=== PATIENT | male | born 1960 | race Asian ===

== ENCOUNTER 2022-06-30 11:05 | Inpatient (IN) ==
[2022-06-30 16:26] LABS: ABS Eosinophils 0.1 10^3/ul (0-0.6); ABS Lymphocytes 1.8 10^3/ul (1.0-4.8); ABS Monocytes 0.5 10^3/ul (0-0.8); ABS Neutrophils 5.7 10^3/ul (1.5-7.7); Hematocrit 39 % (42-52); Hemoglobin 13.1 g/dL (14.0-18.0); Lymphocyte % 21.8 %; Mean Corpuscular HGB Conc 34 g/dL (31-36); Mean Corpuscular Hemoglobin 29 pg (27-31); Mean Corpuscular Volume 84 fL (80-94); Mean Platelet Volume 8.4 fL (7.4-10.4); Platelet Count 299 10^3/uL (150-450); Red Blood Count 4.61 10^6 /uL (4.18-5.48); Red Cell Distribution Width 14 % (10-15); White Blood Count 8.2 10^3/uL (3.5-10.8)
[2022-06-30 16:29] LABS: Urine Appearance Clear; Urine Bilirubin Negative (Negative); Urine Blood Negative (Negative); Urine Color Straw; Urine Glucose Negative (Negative); Urine Ketones Negative (Negative); Urine Nitrite Negative (Negative); Urine Protein Negative (Negative); Urine Specific Gravity 1.004 (1.002-1.030); Urine Urobilinogen Negative (Negative)
[2022-06-30 17:01] LABS: Albumin 4.9 g/dL (3.2-5.2); C Reactive Protein 2.07 mg/L (<8.01); Calcium 9.8 mg/dL (8.6-10.3); Creatinine, Serum 3.66 mg/dL (0.67-1.17); Globulin 2.4 g/dL (2-4); Total Bilirubin 0.6 mg/dL (0.2-1.0); Total Protein 7.3 g/dL (6.4-8.9); eGFR CKD-EPI 18.3 (>60)
[2022-06-30 17:03] LABS: Potassium 5.6 mmol/L (3.5-5.0)
[2022-06-30] MEDS ORDERED: Lactated Ringers 1000 ml BAG 1,000 ML IV ONE (17:38)
[2022-06-30] MEDS ORDERED: NS 0.9% 1000 ml BAG 1,000 ML IV ONE ×3 (20:40→21:31)
[2022-06-30 21:09] LABS: Urine Appearance Cloudy; Urine Bilirubin Negative (Negative); Urine Blood 3+ (Negative); Urine Color Yellow; Urine Glucose Negative (Negative); Urine Ketones Negative (Negative); Urine Nitrite Negative (Negative); Urine Protein Negative (Negative); Urine Specific Gravity 1.004 (1.002-1.030); Urine Urobilinogen Negative (Negative)
[2022-06-30 21:20] LABS: Urine Bacteria 1+ (Absent); Urine Red Blood Cell 3+(>10/hpf) (Absent); Urine White Blood Cell 3+(>20/hpf) (Absent)
[2022-06-30] MEDS ORDERED: cefTRIAXone 1 gm/50 mL D5W 1 GM/50 ML BAG IV ONE (21:32)
[2022-06-30 23:32] LABS: ABS Monocytes 0.3 10^3/ul (0-0.8); ABS Neutrophils 7.9 10^3/ul (1.5-7.7); Eosinophil % 0.3 %; Hematocrit 39 % (42-52); Hemoglobin 12.8 g/dL (14.0-18.0); Lymphocyte % 11.2 %; Mean Corpuscular HGB Conc 33 g/dL (31-36); Mean Corpuscular Hemoglobin 28 pg (27-31); Mean Corpuscular Volume 85 fL (80-94); Mean Platelet Volume 8.3 fL (7.4-10.4); Platelet Count 286 10^3/uL (150-450); Red Blood Count 4.64 10^6 /uL (4.18-5.48); Red Cell Distribution Width 14 % (10-15); White Blood Count 9.2 10^3/uL (3.5-10.8)
[2022-07-01 00:13] LABS: Albumin 4.5 g/dL (3.2-5.2); Albumin/Globulin Ratio 1.8 (1-3); Calcium 8.9 mg/dL (8.6-10.3); Creatinine, Serum 3.29 mg/dL (0.67-1.17); Globulin 2.5 g/dL (2-4); Total Bilirubin 0.5 mg/dL (0.2-1.0); eGFR CKD-EPI 20.8 (>60)
[2022-07-01 00:28] LABS: Potassium 6.1 mmol/L (3.5-5.0)
[2022-07-01] MEDS ORDERED: CALCIUM GLUCONATE 1GM/50ML NS 1 GM/50 ML BAG IV ONE (00:40)
[2022-07-01] MEDS ORDERED: Dextrose 50% Syringe 50 ml 25 GM/50 ML SYRINGE IV PUSH ONE (00:41)
[2022-07-01] MEDS ORDERED: Sodium Polystyrene ORAL.SUSP 15 GM/60 ML BTL PO ONE (00:59)
[2022-07-01 03:02] LABS: Urine Appearance Cloudy; Urine Bacteria Absent (Absent); Urine Bilirubin Negative (Negative); Urine Blood 3+ (Negative); Urine Glucose 1+(50 mg/dL) (Negative); Urine Ketones Trace (Negative); Urine Nitrite Negative (Negative); Urine Protein 3+(>=500 mg/dL) (Negative); Urine Red Blood Cell 3+(>10/hpf) (Absent); Urine Specific Gravity 1.005 (1.002-1.030); Urine Urobilinogen Negative (Negative); Urine White Blood Cell Absent (Absent)
[2022-07-01 03:03] LABS: Urine Color Red
[2022-07-01 03:19] LABS: Calcium 9.3 mg/dL (8.6-10.3); Creatinine, Serum 3.04 mg/dL (0.67-1.17); eGFR CKD-EPI 22.8 (>60)
[2022-07-01 03:23] LABS: Potassium 5.2 mmol/L (3.5-5.0)
[2022-07-01] MEDS ORDERED: Lactated Ringers 1000 ml BAG 1,000 ML IV SCH (04:00)
[2022-07-01 06:04] LABS: ABS Lymphocytes 1.4 10^3/ul (1.0-4.8); ABS Monocytes 0.5 10^3/ul (0-0.8); ABS Neutrophils 6.5 10^3/ul (1.5-7.7); Eosinophil % 0.2 %; Hematocrit 39 % (42-52); Hemoglobin 12.9 g/dL (14.0-18.0); Lymphocyte % 16.6 %; Mean Corpuscular HGB Conc 33 g/dL (31-36); Mean Corpuscular Hemoglobin 28 pg (27-31); Mean Corpuscular Volume 84 fL (80-94); Mean Platelet Volume 8.6 fL (7.4-10.4); Platelet Count 281 10^3/uL (150-450); Red Blood Count 4.61 10^6 /uL (4.18-5.48); Red Cell Distribution Width 14 % (10-15); White Blood Count 8.4 10^3/uL (3.5-10.8)
[2022-07-01 06:51] LABS: ALT 12 U/L (7-52); Albumin 4.5 g/dL (3.2-5.2); Albumin/Globulin Ratio 1.8 (1-3); Alkaline Phosphatase 51 U/L (35-149); Blood Urea Nitrogen 34 mg/dL (6-24); CO2 Carbon Dioxide 18 mmol/L (22-32); Calcium 9.3 mg/dL (8.6-10.3); Creatinine, Serum 3.19 mg/dL (0.67-1.17); Globulin 2.5 g/dL (2-4); Glucose 90 mg/dL (70-100); eGFR CKD-EPI 21.6 (>60)
[2022-07-01 06:56] LABS: Anion Gap 11 mmol/L (2-11); Chloride 117 mmol/L (101-111); Sodium 146 mmol/L (135-145)
[2022-07-01 08:31] LABS: Potassium Redraw 5.4 mmol/L (3.5-5.0)
[2022-07-01] MEDS: Lactated Ringers 1000 ml BAG 1,000 ML IV SCH ×3 (08:46→23:36)
[2022-07-01 16:03] LABS: Calcium 9.2 mg/dL (8.6-10.3); Creatinine, Serum 2.76 mg/dL (0.67-1.17); Magnesium 1.7 mg/dL (1.9-2.7); Phosphorus 4.7 mg/dL (2.5-5.0); Potassium 4.5 mmol/L (3.5-5.0); eGFR CKD-EPI 25.6 (>60)
[2022-07-01] MEDS ORDERED: Magnesium Sulfate 2 gm BAG 2 GM/50 ML BAG IVPB ONE (16:15)
[2022-07-02] MEDS: Lactated Ringers 1000 ml BAG 1,000 ML IV SCH ×2 (05:43→14:07)
[2022-07-02 07:19] LABS: ABS Eosinophils 0.2 10^3/ul (0-0.6); ABS Lymphocytes 1.9 10^3/ul (1.0-4.8); ABS Monocytes 0.5 10^3/ul (0-0.8); ABS Neutrophils 5.2 10^3/ul (1.5-7.7); Eosinophil % 2.4 %; Hematocrit 34 % (42-52); Hemoglobin 11.4 g/dL (14.0-18.0); Lymphocyte % 24.3 %; Mean Corpuscular HGB Conc 34 g/dL (31-36); Mean Corpuscular Hemoglobin 28 pg (27-31); Mean Corpuscular Volume 84 fL (80-94); Mean Platelet Volume 8.9 fL (7.4-10.4); Platelet Count 273 10^3/uL (150-450); Red Blood Count 4.07 10^6 /uL (4.18-5.48); Red Cell Distribution Width 15 % (10-15); White Blood Count 7.7 10^3/uL (3.5-10.8)
[2022-07-02 07:39] LABS: Calcium 8.8 mg/dL (8.6-10.3); Creatinine, Serum 2.41 mg/dL (0.67-1.17); Magnesium 1.9 mg/dL (1.9-2.7); Phosphorus 4.1 mg/dL (2.5-5.0); Potassium 4.2 mmol/L (3.5-5.0); eGFR CKD-EPI 30.2 (>60)
[2022-07-03] MEDS: Lactated Ringers 1000 ml BAG 1,000 ML IV SCH ×2 (03:31→16:39)
[2022-07-03 07:31] LABS: Hematocrit 32 % (42-52); Hemoglobin 11.5 g/dL (14.0-18.0); Mean Corpuscular HGB Conc 36 g/dL (31-36); Mean Corpuscular Hemoglobin 29 pg (27-31); Mean Corpuscular Volume 82 fL (80-94); Mean Platelet Volume 8.6 fL (7.4-10.4); Platelet Count 262 10^3/uL (150-450); Red Blood Count 3.94 10^6 /uL (4.18-5.48); Red Cell Distribution Width 14 % (10-15); White Blood Count 7.9 10^3/uL (3.5-10.8)
[2022-07-03 07:52] LABS: Albumin 3.8 g/dL (3.2-5.2); Albumin/Globulin Ratio 1.8 (1-3); Calcium 9.1 mg/dL (8.6-10.3); Creatinine, Serum 2.03 mg/dL (0.67-1.17); Globulin 2.1 g/dL (2-4); Potassium 4.3 mmol/L (3.5-5.0); Total Bilirubin 0.5 mg/dL (0.2-1.0); Total Protein 5.9 g/dL (6.4-8.9); eGFR CKD-EPI 37.1 (>60)
[2022-07-03 07:58] LABS: INR 1.16 (0.88-1.18)
[2022-07-03 17:49] LABS: Calcium 9.1 mg/dL (8.6-10.3); Creatinine, Serum 1.9 mg/dL (0.67-1.17); Magnesium 1.6 mg/dL (1.9-2.7); Phosphorus 3.1 mg/dL (2.5-5.0); Potassium 4.2 mmol/L (3.5-5.0); eGFR CKD-EPI 40.1 (>60)
[2022-07-03] MEDS ORDERED: Magnesium Sulfate 2 gm BAG 2 GM/50 ML BAG IVPB ONE (23:32)
[2022-07-04] MEDS: Lactated Ringers 1000 ml BAG 1,000 ML IV SCH (07:49)
[2022-07-04 08:18] LABS: ABS Eosinophils 0.3 10^3/ul (0-0.6); ABS Lymphocytes 2.4 10^3/ul (1.0-4.8); ABS Monocytes 0.5 10^3/ul (0-0.8); ABS Neutrophils 5.1 10^3/ul (1.5-7.7); Calcium 9.2 mg/dL (8.6-10.3); Creatinine, Serum 1.7 mg/dL (0.67-1.17); Eosinophil % 4.1 %; Hematocrit 34 % (42-52); Hemoglobin 11.5 g/dL (14.0-18.0); Magnesium 2.1 mg/dL (1.9-2.7); Mean Corpuscular HGB Conc 34 g/dL (31-36); Mean Corpuscular Hemoglobin 28 pg (27-31); Mean Corpuscular Volume 83 fL (80-94); Mean Platelet Volume 8.7 fL (7.4-10.4); Phosphorus 3.4 mg/dL (2.5-5.0); Platelet Count 285 10^3/uL (150-450); Potassium 4.1 mmol/L (3.5-5.0); Red Blood Count 4.06 10^6 /uL (4.18-5.48); Red Cell Distribution Width 14 % (10-15); White Blood Count 8.4 10^3/uL (3.5-10.8); eGFR CKD-EPI 45.9 (>60)
[2022-07-04 10:46] LABS: Urine Potassium Concentration 9.5 mmol/L
[2022-07-04 12:27] LABS: Urine Osmo 217 mOsm/kg (150-1150)
[2022-07-04] MEDS ORDERED: Polyethylene Glycol 3350 17 GM PACKET PO PRN (15:41)
[2022-07-04 17:49] LABS: Calcium 9.4 mg/dL (8.6-10.3); Creatinine, Serum 1.66 mg/dL (0.67-1.17); Potassium 4.5 mmol/L (3.5-5.0); eGFR CKD-EPI 47.2 (>60)
[2022-07-05 05:23] LABS: ABS Eosinophils 0.5 10^3/ul (0-0.6); ABS Monocytes 0.5 10^3/ul (0-0.8); ABS Neutrophils 5.2 10^3/ul (1.5-7.7); Eosinophil % 5.9 %; Hematocrit 35 % (42-52); Hemoglobin 11.7 g/dL (14.0-18.0); Mean Corpuscular HGB Conc 34 g/dL (31-36); Mean Corpuscular Hemoglobin 28 pg (27-31); Mean Corpuscular Volume 83 fL (80-94); Mean Platelet Volume 8.3 fL (7.4-10.4); Platelet Count 284 10^3/uL (150-450); Red Cell Distribution Width 14 % (10-15); White Blood Count 8.2 10^3/uL (3.5-10.8)
[2022-07-05 06:01] LABS: Osmolality Serum 296 mOsm/kg (275-295)
[2022-07-05 06:10] LABS: C Reactive Protein 2.46 mg/L (<8.01); Calcium 9.3 mg/dL (8.6-10.3); Creatinine, Serum 1.62 mg/dL (0.67-1.17); Magnesium 1.8 mg/dL (1.9-2.7); Phosphorus 2.7 mg/dL (2.5-5.0); Potassium 4.2 mmol/L (3.5-5.0); eGFR CKD-EPI 48.6 (>60)
[2022-07-05] MEDS ORDERED: Magnesium Sulfate 2 gm BAG 2 GM/50 ML BAG IVPB ONE (07:24)
[2022-07-05 09:14] LABS: Urine Appearance Clear; Urine Bilirubin Negative (Negative); Urine Blood 2+ (Negative); Urine Color Straw; Urine Glucose Negative (Negative); Urine Ketones Negative (Negative); Urine Nitrite Negative (Negative); Urine Protein 2+(100 mg/dL) (Negative); Urine Specific Gravity 1.004 (1.002-1.030); Urine Urobilinogen Negative (Negative)
[2022-07-05 09:30] LABS: Urine Bacteria Absent (Absent); Urine Red Blood Cell Trace(0-2/hpf) (Absent); Urine White Blood Cell Trace(0-5/hpf) (Absent)
[2022-07-05] MEDS ORDERED: D5W 1/2 NS 1000 ml BAG 1,000 ML IV SCH (12:00)
[2022-07-05 18:09] LABS: Urine Osmo 212 mOsm/kg (150-1150)
[2022-07-06 06:13] LABS: Hematocrit 37 % (42-52); Hemoglobin 12.9 g/dL (14.0-18.0); Mean Corpuscular HGB Conc 35 g/dL (31-36); Mean Corpuscular Hemoglobin 29 pg (27-31); Mean Corpuscular Volume 84 fL (80-94); Mean Platelet Volume 8.4 fL (7.4-10.4); Platelet Count 319 10^3/uL (150-450); Red Blood Count 4.38 10^6 /uL (4.18-5.48); Red Cell Distribution Width 14 % (10-15); White Blood Count 8.7 10^3/uL (3.5-10.8)
[2022-07-06 06:31] LABS: Calcium 9.7 mg/dL (8.6-10.3); Creatinine, Serum 1.49 mg/dL (0.67-1.17); Potassium 4.9 mmol/L (3.5-5.0); eGFR CKD-EPI 53.7 (>60)
[2022-07-06 13:12] LABS: Urine Potassium Concentration 8.8 mmol/L
[2022-07-06 13:51] VITALS: BP 130/86
[2022-07-06 17:50] LABS: Urine Sodium Concentration 51 mmol/L; Urine Sodium/24 Hour 188 mmol/24 (40-220)
[2022-07-07 16:46] LABS: PSA Free 3.2 ng/mL; PSA Total 12.1 ng/mL (<=3.5)
== END 2022-07-06 17:45 | disposition home or self-care (01) | DRG 694 ==
LOC: ED 11:05 → SUATTDRO 07-01 01:31 → EDHOLD 07-01 01:31 → MED 07-01 18:10
PROVIDERS: ADMIT Student in an Organized Health Care Education/Training Program; ATTEND Internal Medicine